=== PATIENT | male | born 1940 | race Caucasian/White ===

== ENCOUNTER 2021-11-28 17:50 | Emergency (ER) | payer OTHER ==
[~2021-11-28] VITALS: Ht 167.6 cm; Wt 83.2 kg
[2021-11-28] MEDS ORDERED: AMOXICILLIN 8751 TAB PO (19:20)
[2021-11-28 19:38] VITALS: BP 154/90; PULSE 85; TEMP 98.5
== END 2021-11-28 18:40 | disposition home or self-care (01) ==
LOC: COL.ER 17:50
DX: S80.212A Abrasion, left knee, initial encounter (principal); I10 Essential (primary) hypertension; S80.211A Abrasion, right knee, initial encounter; W54.0XXA Bitten by dog, initial encounter

== ENCOUNTER → 2021-12-26 | Outpatient (CLI) | payer OTHER ==
[~2021-12-26] MED LIST: AMOXICILLIN 8751 TAB PO
== END ==
LOC: COL.RAD 12-13 08:15
DX: M47.812 Spondylosis without myelopathy or radiculopathy, cervical region (principal); M47.813 Spondylosis without myelopathy or radiculopathy, cervicothoracic region; M48.02 Spinal stenosis, cervical region; M48.03 Spinal stenosis, cervicothoracic region; M43.13 Spondylolisthesis, cervicothoracic region; M25.78 Osteophyte, vertebrae
CPT/HCPCS: A9575